=== PATIENT | male | born 1945 | race Caucasian/White ===

== ENCOUNTER 2021-05-14 08:16 | Emergency (ER) | payer OTHER, SELFPAY ==
[2021-05-14 08:34] VITALS: BP 112/53; PULSE 71; RESP 16; TEMP 36.7; O2SAT 98
--- NOTE | 2021-05-14 09:00 | ED.NECK ---
HPI - Neck Pain/Injury General Chief Complaint: Neck Pain/Injury Stated Complaint: neck pain Time Seen by Provider: 05/14/21 08:43 Source: patient and RN notes reviewed Mode of arrival: ambulatory Limitations: no limitations History of Present Illness HPI Narrative: Patient presents today complaining of neck pain. [place] 15 minutes with his head had a crooked angle. When he woke up his neck was very stiff and has been very stiff since that time. He has pain bilaterally that increases with head movement. Currently rates pain 3/10 and has been taking ibuprofen with some mild relief. Denies numbness or tingling in the extremities. Denies radiation of the pain. Patient does have chronic neck pain for the past 15 years after an injury. MD complaint: neck pain Related Data Home Medications Medication Instructions Recorded Confirmed atorvastatin 05/14/21 finasteride mg 05/14/21 levothyroxine 05/14/21 tamsulosin mg PO 05/14/21 Allergies Allergy/AdvReac Type Severity Reaction Status Date / Time codeine Allergy Hallucinati Verified 05/14/21 08:43 ng meperidine [From Demerol] Allergy Hallucinati Verified 05/14/21 08:44 ng Review of Systems Review of Systems: CONSTITUTIONAL: Denies body aches, fever, chills, or sweats. EYES: Denies visual changes, redness, or discharge. ENT: Denies rhinorrhea, congestion, sore throat, or otalgia. CARDIOVASCULAR: Denies chest pain, palpitations, or edema. RESPIRATORY: Denies cough or dyspnea. GASTROINTESTINAL: Denies abdominal pain, nausea, vomiting, or diarrhea. GENITOURINARY: Denies dysuria or hematuria. SKIN: Denies rash, itching, or wounds. MUSCULOSKELETAL: Denies back pain, joint pain, or myalgia.+ Neck pain NEUROLOGIC: Denies headache, numbness, tingling, or weakness. PSYCH: Denies depression or anxiety. 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 Please see nursing chart for further information. There is no relevant family history pertinent to the presenting complaint Exam Narrative: GENERAL: Well-appearing, well-nourished, and in no acute distress. HEAD: Normocephalic, atraumatic. EYES: EOMI. No redness or drainage. Conjunctivae normal. ENT: Mucous membranes pink and moist. NECK: Decreased range of motion in all directions due to pain and stiffness. No tenderness bilaterally. No bony tenderness of the cervical spine. Patient localizes pain in the bilateral paraspinal muscles. Distal sensation intact. Capillary refill normal. Radial pulses normal. Handgrips equal and strong. CHEST: No respiratory distress. EXTREMITIES: Normal range of motion. No edema. SKIN: Warm, dry, no rash. Capillary refill normal. Normal skin turgor. NEURO: No focal deficits. Alert and oriented x3. Gait steady. PSYCH: Normal affect. No signs of depression or anxiety. Course Vital Signs Vital signs: Vital Signs Temperature 98.1 F 05/14/21 08:34 Pulse Rate 71 05/14/21 08:34 Respiratory Rate 16 05/14/21 08:34 Blood Pressure 112/53 L 05/14/21 08:34 Pulse Oximetry 98 05/14/21 08:34 Temperature 98.1 F 05/14/21 08:34 Pulse Rate 71 05/14/21 08:34 Respiratory Rate 16 05/14/21 08:34 Blood Pressure 112/53 L 05/14/21 08:34 Pulse Oximetry 98 05/14/21 08:34 Reviewed MDM - Neck Pain/Injury Differential Diagnosis Differential diagnosis: Likely disc disorder of cervical region, cervical radiculopathy, torticollis and strain of neck muscle Critical Care Time Critical Care Time Critical Care Time: No Discharge Plan Discharge Clinical Impression: Acute torticollis Patient Disposition: Home, Self-Care Condition: Stable Instructio
== END 2021-05-14 09:22 | disposition home or self-care (01) ==
PROVIDERS: Emergency Provider Nurse Practitioner
DX: J03.90 Acute tonsillitis, unspecified (principal); E78.00 Pure hypercholesterolemia, unspecified; E03.9 Hypothyroidism, unspecified
CPT/HCPCS: 99213; G0463

== ENCOUNTER 2023-09-29 09:36 | Emergency (ER) | payer OTHER, SELFPAY ==
[2023-09-29 09:58] VITALS: BP 126/71; PULSE 80; RESP 16; TEMP 35.9; O2SAT 100
[2023-09-29 09:59] LABS: Glucose Point of Care 116 mg/dl (65-105)
--- NOTE | 2023-09-29 09:59 | ECG_ITS ---
Measurements Intervals [place] Rate: 67 P: 89 VT: 179 QRS: -85 QRSD: 179 T: 85 QT: 478 QTc: 505 Interpretive Statements ELECTRONIC ATRIAL PACEMAKER ELECTRONIC VENTRICULAR PACEMAKER NO PREVIOUS ECG AVAILABLE FOR COMPARISON Electronically Signed On 09-29-2023 15:44:19 AUTO BODY TECHNICIAN by Kirill Lee M.D.
--- NOTE | 2023-09-29 10:03 | ED.SYNCOPE ---
HPI - Syncope General Chief Complaint: Syncope Stated Complaint: Weakness/Fatigue Time Seen by Provider: 09/29/23 09:50 Source: patient, family () and RN notes reviewed Mode of arrival: ambulatory Limitations: no limitations History of Present Illness HPI narrative: Patient and present today after patient had a near syncopal episode while walking [place] approximately 1 hour prior to arrival. States he suddenly became weak and diaphoretic. Denies chest pain, shortness of breath, headache, nausea vomiting, numbness or tingling, or any additional symptoms. States he is feeling much better and almost back to normal upon arrival. Patient does have a pacemaker that was placed approximately 10 years ago. Denies any recent illness. Related Data Home Medications Medication Instructions Recorded Confirmed atorvastatin 40 mg tablet 05/14/21 finasteride 5 mg tablet mg 05/14/21 levothyroxine 150 mcg tablet 05/14/21 tamsulosin 0.4 mg capsule mg PO 05/14/21 Allergies Allergy/AdvReac Type Severity Reaction Status Date / Time codeine Allergy Hallucinati Verified 05/14/21 08:43 ng meperidine [From Demerol] Allergy Hallucinati Verified 05/14/21 08:44 ng Review of Systems Review of Systems: CONSTITUTIONAL: Denies body aches, fever, chills, or sweats. EYES: Denies visual changes, redness, or discharge. ENT: Denies rhinorrhea, congestion, sore throat, or otalgia. CARDIOVASCULAR: Denies chest pain, palpitations, or edema. RESPIRATORY: Denies cough or dyspnea. GASTROINTESTINAL: Denies abdominal pain, nausea, vomiting, or diarrhea. GENITOURINARY: Denies dysuria or hematuria. SKIN: Denies rash, itching, or wounds.+ diaphoresis MUSCULOSKELETAL: Denies back pain, joint pain, or myalgia. NEUROLOGIC: Denies headache, numbness, tingling. + weakness, fatigue, near syncope PSYCH: Denies depression or anxiety. 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 Please see nursing chart for further information. There is no relevant family history pertinent to the presenting complaint Exam Narrative: GENERAL: Well-appearing, well-nourished, and in no acute distress. HEAD: Normocephalic, atraumatic. EYES: EOMI. No redness or drainage. Conjunctivae normal. ENT: Mucous membranes pink and moist. NECK: Normal AROM. Supple. No lymphadenopathy. CHEST: No respiratory distress. Clear to auscultation. HEART: Regular rate and rhythm. No murmur appreciated. Normal peripheral pulses. MUSCULOSKELETAL: No bony tenderness. EXTREMITIES: Normal range of motion. No edema. Hand log buncher equal and strong. Dorsiflexion and plantar flexion equal and strong against resistance SKIN: Warm, no rash. Capillary refill normal. Normal skin turgor. Mild diaphoresis NEURO: No focal deficits. Alert and oriented x3. Gait steady. PSYCH: Normal affect. No signs of depression or anxiety. Course Course Level of Care: Express Care Visit Vital Signs Vital signs: Vital Signs Temperature 96.7 F L 09/29/23 09:58 Pulse Rate 80 09/29/23 09:58 Respiratory Rate 16 09/29/23 09:58 Blood Pressure 126/71 09/29/23 09:58 Pulse Oximetry 100 09/29/23 09:58 Oxygen Delivery Room Air 09/29/23 09:58 Temperature 96.7 F L 09/29/23 09:58 Pulse Rate 80 09/29/23 09:58 Respiratory Rate 16 09/29/23 09:58 Blood Pressure 126/71 09/29/23 09:58 Pulse Oximetry 100 09/29/23 09:58 Oxygen Delivery Room Air 09/29/23 09:58 Reviewed MDM - Syncope MDM Narrative Medical decision making narrative: Recommend patient go to the ER for further evaluation of his symptoms and possible interrogation of his pacemaker.
== END 2023-09-29 10:19 | disposition left against medical advice (07) ==
PROVIDERS: Emergency Provider Nurse Practitioner
DX: R55 Syncope and collapse (principal); J44.9 Chronic obstructive pulmonary disease, unspecified; E78.00 Pure hypercholesterolemia, unspecified; E03.9 Hypothyroidism, unspecified; Z95.0 Presence of cardiac pacemaker
CPT/HCPCS: 82948; 93005; 99213; G0463